=== PATIENT | female | born 1990 | race Caucasian/White ===

== ENCOUNTER 2018-07-26 14:36 | Emergency (ER) | payer OTHER ==
[2018-07-26 14:48] VITALS: BP 126/87; PULSE 110; TEMP 97.6; BMI 18.5
--- NOTE | 2018-07-26 14:52 | PDOC ---
Rapid Medical Evaluation Chief Complaint: Dysphagia Time Seen by Provider: 07/26/18 14:48 Medical Evaluation: 07/26/18 14:49 I have performed a brief in-person evaluation of this patient. The patient presents with a chief complaint of: difficulty with swallow. Report has sore throat few weeks ago which was treated. saw GI a week ago and endoscopy was done which only showed throat inflammation and still feeling symptoms and wants to make sure strep is not back Pertinent physical exam findings: no pharyngeal erythema. throat patent I have ordered the following: rapid strep The patient will proceed to the ED for further evaluation. Discharge Disposition - Diagnosis Dysphagia Qualifiers: Dysphagia type: unspecified Qualified Code(s): R13.10 - Dysphagia, unspecified - Discharge Dispostion Condition at time of disposition: Stable - Referrals - Patient Instructions - Post Discharge Activity
--- NOTE | 2018-07-26 16:06 | PDOC ---
History of Present Illness - General Chief Complaint: Dysphagia Stated Complaint: NECK SORE Time Seen by Provider: 07/26/18 14:48 History Source: Patient Exam Limitations: No Limitations - History of Present Illness Initial Comments: 07/26/18 16:01 27 year old female with no significant medical or surgical history presents with reports of sorethroat and slow swallowing. Denies fever, chills or headache. Patient had endoscopy yesterday with normal results and has ENT follow up appointment for next week. Also states recently treated with bicillin one month ago for + strep A. Timing/Duration: reports: week Severity: reports: mild Possible Cause: Yes: frequent episodes Modifying Factors: improves with: antibiotics Associated Symptoms: reports: sore throat Aspirin Received prior to arrival: Yes: no aspirin today ASA Contraindications(Core Measure): No: Allergy Beta Chris Given by EMS(Core Measure): No Beta Chris Taken at Home(Core Measure): No Beta Chris Not Indicated at this Time(Core Measure): No Past History - Travel Traveled outside of the country in the last 30 days: No Close contact w/someone who was outside of country & ill: No - Past Medical History Allergies/Adverse Reactions: Allergies Allergy/AdvReac Type Severity Reaction Status Date / Time No Known Allergies Allergy Verified 07/26/18 15:30 Home Medications: Ambulatory Orders Azithromycin [Zithromax 250mg Tablets -] 250 mg PO UTDICT #6 tab 07/26/18 - Suicide/Smoking/Psychosocial Hx Smoking History: Never smoked Have you smoked in the past 12 months: No Information on smoking cessation initiated: No Hx Alcohol Use: No Drug/Substance Use Hx: No Respiratory Specific PMHX - Complaint Specific PMHX Angina: No Bronchitis: No Pneumonia: No Pulmonary Embolus: No TB (Tuberculosis): No Review of Systems - Review of Systems Able to Perform ROS?: Yes Is the patient limited [place] proficient: No Constitutional: No: Chills, Fever HEENTM: Yes: Throat Pain. No: Nose Pain, Nose Congestion, Throat Swelling, Other Respiratory: No: Cough, Orthopnea, Shortness of Breath, Wheezing, Productive cough Cardiac (ROS): No: Chest Pain, Lightheadedness ABD/GI: No: Abdominal Distended, Constipated, Nausea, Poor Appetite, Poor Fluid Intake, Vomiting, Indigestion : No: Incontinence Musculoskeletal: No: Back Pain, Gout, Joint Pain, Muscle Weakness, Neck Pain Neurological: No: Headache, Numbness *Physical Exam - Vital Signs Last Vital Signs Temp Pulse Resp BP Pulse Ox 97.6 F 110 H 20 126/87 100 07/26/18 14:45 07/26/18 14:45 07/26/18 14:45 07/26/18 14:45 07/26/18 14:45 - Physical Exam General Appearance: Yes: Nourished, Appropriately Dressed. No: Apparent Distress HEENT: positive: TMs Normal, Pharyngeal Erythema. negative: Tonsillar Exudate, Tonsillar Erythema Neck: positive: Supple. negative: Carotid bruit, Lymphadenopathy (R) Respiratory/Chest: positive: Lungs Clear Cardiovascular: positive: Regular Rhythm, Regular Rate Moderate Sedation - Procedure Monitoring Vital Signs: Procedure Monitoring Vital Signs Temperature 97.6 F 07/26/18 14:45 Pulse Rate 110 H 07/26/18 14:45 Respiratory Rate 20 07/26/18 14:45 Blood Pressure 126/87 07/26/18 14:45 O2 Sat by Pulse Oximetry (%) 100 07/26/18 14:45 Medical Decision Making - Medical Decision Making 07/26/18 16:04 27 year old female with no significant medical or surgical history presents with reports of sorethroat and slow swallowing rapid strep + strep A in RME pt has no pain at present will treat with azithromycin since last episode treated with bicillin LA less than one month ago. Patient has symptoms similar to that of previous infection. Has appt. with ENT in one week Rx: z-pack *DC/Admit/Observation/Transfer Diagnosis at time of Disposition: Strep pharyngitis Dysphagia Qualifiers: Dysphagia type: unspecified Qualified Code(s): R13.10 - Dysphagia, unspecified - Discharge Dispostion Disposition: HOME Condition at time of disposition: Good Decision to Admit order: No - Prescriptions Prescriptions: Azithromycin [Zithromax 250mg Tablets -] 250 mg PO UTDICT #6 tab - Referrals Referrals: Dusty Serrano [Primary Care Provider] - - Patient Instructions Printed Discharge Instructions: Strep Throat Additional Instructions: Please follow up with ENT as previously scheduled May gargle with warm salt water or suck on hard candy to soothe throat - Post Discharge Activity Forms/Work/School Notes: Back to Work
== END 2018-07-26 16:11 | disposition home or self-care (01) ==
LOC: JERFT 14:36
DX: J02.0 Streptococcal pharyngitis (principal); B95.0 Streptococcus, group A, as the cause of diseases classified elsewhere
CPT/HCPCS: 87880; 99281-25